=== PATIENT | female | born 1985 ===

== ENCOUNTER 2019-01-14 05:00 | Day surgery (SDC) | payer OTHER ==
[2019-01-14] MEDS ORDERED: MORGIDOX100 MG PO (08:39)
[2019-01-14] MEDS ORDERED: Tylenol #3 PO (08:39)
== END 2019-01-14 13:25 | disposition home or self-care (01) ==
LOC: CIR.AMB 05:00 → EDBD 09:30 → CIR.AMB 13:25
DX: N84.0 Polyp of corpus uteri (principal); D25.0 Submucous leiomyoma of uterus

== ENCOUNTER 2020-04-17 13:15 | Inpatient (IN) | payer OTHER ==
[~2020-04-17] VITALS: Ht 167.6 cm; Wt 98.0 kg
[~2020-04-17 13:15] MED LIST: MORGIDOX100 MG PO; Tylenol #3 PO
[2020-05-03] MEDS ORDERED: PRENATAL + DHA1 EAC1 PO (05:14)
[2020-05-03] MEDS ORDERED: FOLIC ACID0.8 M1 PO (05:14)
== END 2020-05-06 13:37 | disposition home or self-care (01) | DRG 788 ==
LOC: OB/GYN 05-03 04:41 → EDBD 05-03 04:41 → LDR 05-03 04:41 → O/R 05-03 14:37 → OB/GYN 05-03 15:04
PROVIDERS: ADMIT Obstetrics & Gynecology; ATTEND Obstetrics & Gynecology
PROC: 10907ZC Drainage of Amniotic Fluid, Therapeutic from Products of Conception, Via Natural or Artificial Opening (ICD-10-PCS; 2020-05-03)
PROC: 3E033VJ Introduction of Other Hormone into Peripheral Vein, Percutaneous Approach (ICD-10-PCS; 2020-05-03)
PROC: 4A1HXFZ Monitoring of Products of Conception, Cardiac Rhythm, External Approach (ICD-10-PCS; 2020-05-03)
PROC: 10D00Z1 Extraction of Products of Conception, Low, Open Approach (ICD-10-PCS; principal; 2020-05-03 13:00)
DX: O62.1 Secondary uterine inertia (principal); O24.420 Gestational diabetes mellitus in childbirth, diet controlled; O99.824 Streptococcus B carrier state complicating childbirth; Z37.0 Single live birth; Z3A.39 39 weeks gestation of pregnancy; Z20.822 Contact with and (suspected) exposure to COVID-19